=== PATIENT | male | born 1935 | race Caucasian/White ===

== ENCOUNTER 2017-04-23 17:30 | Inpatient (IN) | payer MEDICARE, BC ==
[2017-04-23] MEDS ORDERED: Acetaminophen 500 MG TAB PO PRN (18:35)
[2017-04-23] MEDS ORDERED: Dextrose 5% in Water 1,000 ML IV PRN (18:37)
[2017-04-23] MEDS ORDERED: HumaLOG 300 UNITS/3 ML VIAL SC PRN (18:37)
[2017-04-23] MEDS ORDERED: Dextrose 50% Abboject 50 ML SYRINGE SLOW IVP PRN (18:37)
[2017-04-23] MEDS ORDERED: Ampicillin 2 GM VIAL SLOW IVP SCH (21:00)
[2017-04-23] MEDS ORDERED: Sodium Chloride 0.9% 10 ML ONE (21:33)
[2017-04-23] MEDS: Carvedilol 6.25 MG TAB PO SCH (21:38)
[2017-04-23] MEDS: Famotidine 20 MG TAB PO SCH (21:38)
[2017-04-23] MEDS: Ampicillin 2 GM VIAL SLOW IVP SCH (21:38)
[2017-04-23] MEDS: guaiFENesin ER 600 MG TAB PO SCH (21:39)
[2017-04-23] MEDS: Sacubitril 49 MG/Valsartan 51 MG TABLET PO SCH (21:39)
[2017-04-24] MEDS ORDERED: Sodium Chloride 0.9% 10 ML ONE ×2 (01:37→15:12)
[2017-04-24] MEDS: Ampicillin 2 GM VIAL SLOW IVP SCH ×6 (01:44→20:20)
[2017-04-24] MEDS ORDERED: Sodium Chloride 0.9% 20 ML ONE (04:53)
[2017-04-24 05:13] LABS: Bilirubin Small (Negative); Blood, Urine Large (Negative); Clarity Hazy (Clear); Glucose, Urine (Dipstick) Negative (Negative); Leukocyte Negative (Negative); Nitrite Negative (Negative); Protein, Urine (Dipstick) 100 mg/dL (Neg-Trace); pH, Urine 5.5 (5.0-9.0)
[2017-04-24 05:14] LABS: Bacteria/HPF Rare-Few HPF (None Seen); RBC/HPF 21-50 HPF (0-3); Squamous Epithelial 0-3 HPF (0-3); WBC/HPF 0-3 HPF (0-3)
[2017-04-24 05:17] LABS: #Lymphocytes 0.3 thou/uL (1.20-3.40); #Monocytes 0.4 thou/uL (0.11-0.59); #Neutrophils 4.3 thou/uL (1.40-6.50); %Basophils 0.5 % (0.0-1.0); %Eosinophils 0.3 % (0.0-10.0); %Lymphocytes 6.1 % (21.0-51.0); %Neutrophils 85.2 % (42.0-75.0); Hemoglobin 10.9 g/dL (14.0-18.0); Mean Corpuscular HGB CONC 31.3 g/dL (32.0-36.0); Mean Corpuscular Hemoglobin 31.1 pg (27.0-31.0); Mean Corpuscular Volume 99.3 fl (80.0-94.0); Mean Platelet Volume 9.6 fL (7.4-10.4); PLT Morphology Comment Appears Decreased; Platelet Count 59 thou/uL (130-400); RBC Distribution Width 17.6 % (11.5-14.5); RBC Morphology Normal; Red Blood Cell (RBC) Count 3.52 mill/uL (4.70-6.10); White Blood Cell (WBC) Count 5.1 thou/uL (4.8-10.8)
[2017-04-24 05:23] LABS: MDiff Complete? YES; Manual Diff?? NO
[2017-04-24 05:34] LABS: ALT (SGPT) 19 U/L (8-55); AST (SGOT) 16 U/L (5-34); Albumin 2.4 g/dL (3.4-4.8); Alkaline Phosphatase 75 U/L (40-150); Anion Gap 17 mmol/L (10-20); BUN (Urea Nitrogen) 69 mg/dL (8.4-25.7); Bilirubin, Total 1.1 mg/dL (0.2-1.2); Calc. Creatinine Clearance 43 mL/min (70-130); Calcium 8.5 mg/dL (7.8-10.44); Carbon Dioxide 29 mmol/L (23-31); Chloride 106 mmol/L (98-107); Estimated GFR-MDRD 36; Globulin 3.1 g/dL (2.4-3.5); Glucose 105 mg/dL (83-110); Potassium 4.2 mmol/L (3.5-5.1); Protein, Total 5.5 g/dL (5.8-8.1); Sodium 148 mmol/L (136-145)
--- NOTE | 2017-04-24 08:22 | HP ---
HISTORY OF PRESENT ILLNESS: The patient is an 82-year-old white male with a long history of atrial f ibrillation and congestive heart failure with ejection fraction of 20-25%, who has had a Watchman dev ice attached and has had a biventricular defibrillator placement done in 12/2016 because of gradually worsening shortness of breath and because of recurrent falls and inability to maintain anti-coagulat ion. He had been doing fairly well after that until he presented on 04/08/2017 with fever, chills, c ough, was found to have health-care associated pneumonia and influenza B in respiratory failure. He required mechanical ventilation intubation as he is a full code. Subsequent culture did return Enter ococcus faecalis and he does have a chronic indwelling suprapubic catheter because of prostatic enlar gement secondary to cancer of the prostate. It was felt that this may have been the source of his En terococcal infection, but echocardiogram did show possible vegetations on the mitral valve and theref ore, he has been treated for Enterococcal endocarditis with ampicillin and Rocephin. He is having a suprapubic catheter replaced weekly because it is felt he may be having intermittent obstruction caus ing the recurrent sepsis. He had become severely weak, unable to maintain ADLs, was barely able to m ove in the bed. He has become weak enough that he is requiring thickened liquids and pureed diet bec ause of aspiration risk. He has chronic kidney disease stage 3, which is being monitored closely wit h a gradual diuresis with most recent creatinine ranging from 1.5 to 1.8. On admission he had a BNP of over 8000, but it has not been repeated. His white count has normalized and he does have a histor y of chronic myelogenous leukemia, but has stable anemia of 10-11 hemoglobin with worsening thrombocy topenia here in the hospital with platelets decreasing from 126 to 59 on transfer. He is on low dose Lovenox for prophylaxis of DVT. He had been continued on carvedilol 12.5 twice daily, Plavix 75 benjamin ly, an Entresto 49/51 one twice daily as well as spironolactone 25 mg daily. He no previous history of hypoxemia or COPD and is a nonsmoker. He was living alone with his prior to this admission a nd was ambulating with assistance. ALLERGIES: He has no known allergies. PAST SURGICAL HISTORY: Positive for decortication of a right empyema, defibrillator placement with a biventricular upgrade recently. FAMILY HISTORY: Only positive for diabetes. REVIEW OF SYSTEMS: Obtained from the old chart mainly. The patient states that he is just very weak , but denies any cough, sputum production, fever, chills, nausea, vomiting, diarrhea. He only compla ins of soreness in his legs. PHYSICAL EXAMINATION: GENERAL: The patient is a very weak and chronically ill white male who is oriented to person, place and time, appears to be in no respiratory distress. VITAL SIGNS: Blood pressure of 131/64, O2 sats 92% on 2 liters, respirations 20, pulse 69 and regula r. Pacemaker rhythm, temperature is 97.4. HEENT: Pupils are equal, round, and react to light and accommodation. Sclerae are anicteric, Conjun ctivae pale. Oral mucous membranes appear to be slightly dehydrated. NECK: Shows JVPs to not be elevated. Carotids 2+ and equal without bruits. LUNGS: Show decreased breath sounds in the bases, but no rales or rhonchi. There are some upper air way sounds. CARDIAC: Cardiac examination shows regular rhythm. There is a pacemaker in place, defibrillator in place, regular rhythm. ABDOMEN: Soft, nontender. SKIN/EXTREMITIES: Show pedal pulses 2+ and equal. There is only trace edema, no clubbing or cyanosi s. NEUROLOGIC: Cranial nerves are intact. The patient is diffusely weak. Deep tendon reflexes 2+ and equal, absent Babinskis. LABORATORY AND X-RAY FINDINGS: Show white count 5100, hematocrit 34, hemoglobin 10, platelet count 5 9,000, sodium 148, potassium 4.2, chloride 106, bicarbonate 29, BUN 69, creatinine 1.82, calcium 8.5, total protein 5.5, albumin 2.4. ASSESSMENT AND PLAN: An 82-year-old white male with a history of significant congestive heart failur e with ejection fraction of 20-25%, chronic atrial fibrillation, status AV jarek ablation and biventr icular pacemaker and defibrillator placement, who has also a history of cancer of prostate with gradu ally increasing obstruction and a suprapubic catheter which has apparently seated his blood and cause d an enterococcal sepsis and subsequent endocarditis with vegetations on the mitral valve. He is joanna ng treated with ampicillin and Rocephin for 8 weeks. He has become significantly weak and did requir e intubation, but now is only on nasal cannula with acceptable saturations at rest, but has been able to minimally do therapy and is admitted for PT and OT while continue slow gentle diuresis. His ibrahima l function is stage 3 and borderline, will be monitored closely, diuresis. He has developed a new pr oblem apparently since admission of thrombocytopenia, possibly due to his heparin therapy and Lovenox will be discontinued. He will be monitor closely. His prognosis is very poor and guarded, but the family was adamant about being a full code and we will monitor closely about the need for further int ensive care. He also will have his Alfredo catheter replaced weekly and will discuss this with Dr. Ortiz stevenson. Base met profile will be monitored daily. He will be continued on gentle diuresis, monitoring c losely for deterioration of his renal function.
[2017-04-24] MEDS: Furosemide 40 MG TAB PO SCH (09:05)
[2017-04-24] MEDS: Aspirin 81 mg Enteric Coated Tablet PO SCH (09:05)
[2017-04-24] MEDS: Famotidine 20 MG TAB PO SCH ×2 (09:05→20:21)
[2017-04-24] MEDS: Sacubitril 49 MG/Valsartan 51 MG TABLET PO SCH ×2 (09:05→20:22)
[2017-04-24] MEDS: guaiFENesin ER 600 MG TAB PO SCH ×2 (09:05→20:21)
[2017-04-24] MEDS: Saccharomyces boulardii 250 MG CAP PO SCH (09:05)
[2017-04-24] MEDS: Carvedilol 6.25 MG TAB PO SCH ×2 (09:06→20:21)
[2017-04-24] MEDS: Clopidogrel Bisulfate 75 MG TAB PO SCH (09:06)
[2017-04-24] MEDS: Spironolactone 25 MG TAB PO SCH (09:06)
[2017-04-24] MEDS: Enoxaparin Sodium 30 MG/0.3 ML SYRINGE SC SCH (09:07)
--- NOTE | 2017-04-24 09:40 | RAD ---
PORTABLE CHEST: Date: 04/24/17 HISTORY: Respiratory distress. COMPARISON: 04/17/17 chest x-ray. FINDINGS: Heart size is enlarged with a pacemaker in place. There is increasing opacification in the left lung base suggesting increasing effusion with atelectasis or infiltrate. Pulmonary vessels are engorged. IMPRESSION: 1. Cardiomegaly with pulmonary vascular engorgement suggesting an element of edema. 2. Increased opacification of the left lung base which could represent effusion with atelectasis abril chin infiltrate. POS: C
[2017-04-24] MEDS ORDERED: cefTRIAXone\\ROCEPHIN 2 GM VIAL IVPB SCH (14:00)
[2017-04-24] MEDS: cefTRIAXone\\ROCEPHIN 1 GM VIAL SLOW IVP SCH ×2 (14:11→14:12)
[2017-04-24] MEDS: Acetaminophen/Codeine 30-300mg Tablet PO PRN (20:22)
[2017-04-25] MEDS: Ampicillin 2 GM VIAL SLOW IVP SCH ×6 (01:37→20:33)
[2017-04-25] MEDS: Saccharomyces boulardii 250 MG CAP PO SCH (07:43)
[2017-04-25] MEDS: guaiFENesin ER 600 MG TAB PO SCH ×2 (07:43→20:34)
[2017-04-25] MEDS: Aspirin 81 mg Enteric Coated Tablet PO SCH (07:44)
[2017-04-25] MEDS: Sacubitril 49 MG/Valsartan 51 MG TABLET PO SCH ×2 (07:44→20:34)
[2017-04-25] MEDS: Famotidine 20 MG TAB PO SCH ×2 (07:44→20:33)
[2017-04-25] MEDS: Carvedilol 6.25 MG TAB PO SCH ×2 (07:44→20:33)
[2017-04-25] MEDS: Spironolactone 25 MG TAB PO SCH (07:44)
[2017-04-25] MEDS: Clopidogrel Bisulfate 75 MG TAB PO SCH (07:44)
[2017-04-25] MEDS: Enoxaparin Sodium 30 MG/0.3 ML SYRINGE SC SCH (07:45)
[2017-04-25] MEDS: Furosemide 40 MG TAB PO SCH (07:45)
--- NOTE | 2017-04-25 08:27 | PRG ---
DATE OF SERVICE: 04/24/2017 SUBJECTIVE: The patient is lying in the bed resting, somewhat agitated, but in no distress, having r ecurrent coughing after speech evaluation. OBJECTIVE: Speech evaluation states the patient is unsafe for any liquids or solids and feel that he is a severe aspiration risk and possibly quietly aspiration. Discussed situation with the who understands fully and is not inclined for PEG tube, but understand the severity and the risk and will think about it and talk with family and give decision tomorrow. I also discussed replacement of sup rapubic tube with the and will discuss this with Dr. Yoon in the morning and replace here in [facility]. The patient has been unable to do any therapy and is needing assistance for all transfer s and is somewhat confused and agitated. He requires 2 persons for transferring and scooting in the bed to the chair. His laboratory show that his BNP is 12,500. Sodium is 148, potassium 4.2, chloride 106, bicarbonate 29, BUN 69, creatinine 1.82, glucose 105, calcium 8.5, AST 16, ALT 19, albumin 2.4. White count 5100 , hematocrit 34, hemoglobin 10.9. LUNGS: Lungs appear fairly clear in the bases, but do appear to have upper airway sounds. CARDIAC: Cardiac examination displays regular rhythm, no murmurs. ABDOMEN: Soft and nontender. SKIN AND EXTREMITIES: Skin and extremities display 2+ edema. Chest x-ray does show cardiomegaly, mild pulmonary congestion. ASSESSMENT: An 82-year-old white male with history of significant ischemic cardiomyopathy with eject ion fraction 20-25%, elevation of BNP to 12,500, who has developed enterococcal bacteremia, most like ly endocarditis and significant deconditioning and weakening. He has become so weak that he is unabl e to maintain oral nutrition and speech feels that he is a severe risk for aspiration. I have discus sed this with the and will discuss a Dobbhoff feeding tube or PEG tube or waver risk and make de cision tomorrow. I have also discussed placement of suprapubic and will do this in the room tomorrow as apparently this was planned and scheduled by Dr. Yoon every week. We will also continue on Roce phin and ampicillin, does not appear to have any episodes of sepsis at this time with normal white co unt, pulse and vital signs and only altered mental status and azotemia. His azotemia appears to be m ost likely related cardiorenal effect. We will continue on 40 of Lasix daily monitoring closely, may need to increase if he has respiratory distress, but appears to be stable at this time and because o f increasing creatinine to 1.8 we will continue this dose. His prognosis is very poor. Will discus s this with the . He is a full code at this time. We will discuss with her also.
--- NOTE | 2017-04-25 09:07 | PRG ---
DATE OF SERVICE: 04/25/2017 SUBJECTIVE: The patient is in bed resting well with no dyspnea or cough at rest. He appears to be m ore alert and responsive today. Still somewhat agitated and not compliant and refuses placement of s uprapubic until returns. OBJECTIVE: VITAL SIGNS: Blood pressure of 134/68, respirations 22, O2 sats 96%, temperature is 95. LUNGS: Lungs are clear posteriorly and anteriorly. CARDIAC: Cardiac examination shows regular rhythm. ABDOMEN: Abdomen is soft and nontender. Suprapubic in place. SKIN AND EXTREMITIES: Skin and extremities showed 1+ edema and some faint pedal pulses. NEUROLOGICAL: Appears to be intact. No focal findings. ASSESSMENT: 1. Enterococcal endocarditis superimposed on severe ischemic cardiomyopathy, ejection fraction of 20 % and BNP of 12,000 on ampicillin and Rocephin, tolerating a gentle diuresis with furosemide 40 mg p. o. daily with decreasing subjective dyspnea and apparent stable physical findings and with only sligh tly increased creatinine to 1.82 from previous 1.74. 2. Urinary obstruction most likely due to cancer of the prostate requiring suprapubic catheter repl acement as feared that this was the source of his enterococcal bacteremia and endocarditis and we patricia l replace today. 3. Atrial fibrillation, status post ablation with biventricular pacer and AICD placement only on sub cutaneous heparin for DVT prophylaxis, unable to maintain full dose heparin or warfarin because of re current fall risk and has had Watchman device placed. PLAN: 1. Replace suprapubic today at bedside. 2. Continue furosemide 40 daily. 3. Continue PT and OT as tolerated.
[2017-04-25] MEDS: cefTRIAXone\\ROCEPHIN 1 GM VIAL SLOW IVP SCH ×2 (13:27→13:54)
[2017-04-25 15:07] VITALS: BMI 30.6
[2017-04-25] MEDS: Acetaminophen/Codeine 30-300mg Tablet PO PRN (20:34)
[2017-04-26] MEDS: Ampicillin 2 GM VIAL SLOW IVP SCH ×6 (01:24→20:56)
[2017-04-26 04:47] LABS: #Lymphocytes 0.4 thou/uL (1.20-3.40); #Monocytes 0.4 thou/uL (0.11-0.59); #Neutrophils 3.7 thou/uL (1.40-6.50); %Basophils 0.7 % (0.0-1.0); %Eosinophils 0.6 % (0.0-10.0); %Monocytes 8.1 % (0.0-10.0); %Neutrophils 81.6 % (42.0-75.0); Mean Corpuscular HGB CONC 29.7 g/dL (32.0-36.0); Mean Corpuscular Hemoglobin 30.6 pg (27.0-31.0); Mean Platelet Volume 10.7 fL (7.4-10.4); PLT Morphology Comment Appears Decreased; Platelet Count 63 thou/uL (130-400); RBC Morphology Normal; Red Blood Cell (RBC) Count 3.59 mill/uL (4.70-6.10); White Blood Cell (WBC) Count 4.5 thou/uL (4.8-10.8)
[2017-04-26 04:48] LABS: Manual Diff?? NO
[2017-04-26 04:49] LABS: MDiff Complete? YES
[2017-04-26 05:07] LABS: Anion Gap 16 mmol/L (10-20); BUN (Urea Nitrogen) 70 mg/dL (8.4-25.7); Calc. Creatinine Clearance 38 mL/min (70-130); Calcium 8.4 mg/dL (7.8-10.44); Carbon Dioxide 30 mmol/L (23-31); Chloride 108 mmol/L (98-107); Estimated GFR-MDRD 31; Glucose 97 mg/dL (83-110); Potassium 4.4 mmol/L (3.5-5.1); Sodium 150 mmol/L (136-145)
[2017-04-26] MEDS: Spironolactone 25 MG TAB PO SCH (07:31)
[2017-04-26] MEDS: Aspirin 81 mg Enteric Coated Tablet PO SCH (07:32)
[2017-04-26] MEDS: Carvedilol 6.25 MG TAB PO SCH (07:32)
[2017-04-26] MEDS: Clopidogrel Bisulfate 75 MG TAB PO SCH (07:33)
[2017-04-26] MEDS: Enoxaparin Sodium 30 MG/0.3 ML SYRINGE SC SCH (07:33)
[2017-04-26] MEDS: Famotidine 20 MG TAB PO SCH (07:33)
[2017-04-26] MEDS: Saccharomyces boulardii 250 MG CAP PO SCH (07:34)
[2017-04-26] MEDS: Furosemide 40 MG TAB PO SCH (07:34)
[2017-04-26] MEDS: guaiFENesin ER 600 MG TAB PO SCH (07:34)
[2017-04-26] MEDS: Sacubitril 49 MG/Valsartan 51 MG TABLET PO SCH (07:34)
[2017-04-26] MEDS: cefTRIAXone\\ROCEPHIN 1 GM VIAL SLOW IVP SCH ×2 (14:11)
[2017-04-26] MEDS ORDERED: Acetaminophen/Codeine 30-300mg Tablet PER TUBE PRN (19:10)
--- NOTE | 2017-04-26 20:39 | PRG ---
DATE OF SERVICE: 04/26/2017 SUBJECTIVE: Patient is sleeping, resting in bed. Has had PEG tube placed today, no complications an d is starting on tube feeding. OBJECTIVE: Shows temperature did increase to 100.6 this morning, but it is down to 96 for now, pulse is 99, respirations 20, O2 sats 97% on 2 liters, blood pressure 137/60. Lungs do show a few rhonchi anteriorly. PEG tube has healed well. LABORATORY DATA: Laboratory shows white count of 4500, 81% segs, platelet count is up to 63,000, hem atocrit 37, hemoglobin 11. Sodium is up to 150, BUN is up to 70, creatinine 2.07, potassium 4.4, chl oride 108. ASSESSMENT: 1. Recurrent aspiration with low grade fever, possibly due to this now n.p.o. with PEG tube feeding. 2. Severe ischemic cardiomyopathy with elevated BNP. 3. Cardiorenal failure, on Lasix and spironolactone. We will discontinue spironolactone, and Lasix and monitor renal function on tube feeding. 4. Recurrent urinary obstruction secondary to cancer of the prostate with suprapubic in place due to replaced next week by his urologist, his tract is not mature. 5. Stable atrial fibrillation, biventricular pacemaker and AICD placement with no evidence of discha rge, with watchman procedure and with no anticoagulation secondary to thrombocytopenia and recurrent falls. 6. Enterococcal endocarditis on Rocephin and ampicillin with no evidence of decompensation, we will continue. PLAN: CBC, base met in the a.m. Start tube feeding Jevity 1.5 at 250 mL every 4 hours with 50 mL steffany er flush. Repeat labs in the morning. Continue ampicillin and Rocephin.
[2017-04-26] MEDS: Famotidine 20 MG TAB PER TUBE SCH (20:57)
[2017-04-26] MEDS: Sacubitril 49 MG/Valsartan 51 MG TABLET PER TUBE SCH (20:57)
[2017-04-26] MEDS: Carvedilol 6.25 MG TAB PER TUBE SCH (21:05)
[2017-04-27] MEDS: Ampicillin 2 GM VIAL SLOW IVP SCH ×4 (01:19→13:09)
[2017-04-27] MEDS: Sterile Water 10 ML VIAL FS SCH ×2 (01:19→05:16)
[2017-04-27 06:33] LABS: #Lymphocytes 0.3 thou/uL (1.20-3.40); #Monocytes 0.5 thou/uL (0.11-0.59); #Neutrophils 4.6 thou/uL (1.40-6.50); %Basophils 0.6 % (0.0-1.0); %Eosinophils 0.7 % (0.0-10.0); %Monocytes 8.6 % (0.0-10.0); %Neutrophils 85.1 % (42.0-75.0); Hemoglobin 11.2 g/dL (14.0-18.0); Mean Corpuscular HGB CONC 29.3 g/dL (32.0-36.0); Mean Corpuscular Hemoglobin 29.9 pg (27.0-31.0); Mean Platelet Volume 10.4 fL (7.4-10.4); Platelet Count 57 thou/uL (130-400); Red Blood Cell (RBC) Count 3.75 mill/uL (4.70-6.10); White Blood Cell (WBC) Count 5.4 thou/uL (4.8-10.8)
[2017-04-27 06:37] LABS: Anion Gap 18 mmol/L (10-20); BUN (Urea Nitrogen) 70 mg/dL (8.4-25.7); Calc. Creatinine Clearance 38 mL/min (70-130); Calcium 8.3 mg/dL (7.8-10.44); Carbon Dioxide 28 mmol/L (23-31); Chloride 110 mmol/L (98-107); Estimated GFR-MDRD 31; Glucose 165 mg/dL (83-110); Potassium 4.7 mmol/L (3.5-5.1); Sodium 151 mmol/L (136-145)
--- NOTE | 2017-04-27 08:33 | PRG ---
DATE OF SERVICE: 04/27/2017 SUBJECTIVE: The patient is very weak, but awake and alert, appears to be in some mild respiratory di stress possibly due to weakness. Denies any chest pain. He is having minimal cough, but is asking f or water as he is n.p.o. at this time. OBJECTIVE: VITAL SIGNS: Blood pressure 148/64, temperature 97, pulse 72, respirations 20, O2 sats 94%. LUNGS: Appear to be clear anteriorly with some decreased breath sounds posteriorly. CARDIAC: Displays irregularly irregular rhythm. SKIN AND EXTREMITIES: Show persistent 1-2+ edema. LABORATORY: Sodium up to 151, potassium 4.7, chloride 110, bicarbonate 28, BUN 70, creatinine 2.07, glucose 165. White count 5400, hematocrit 38, hemoglobin 11. ASSESSMENT: 1. Enterococcal endocarditis, on ampicillin and Rocephin with no evidence of fever, recurrent sepsis . 2. Class IV congestive heart failure with atrial fibrillation, status post Watchman procedure and AV jarek ablation and dual pacemaker, only on aspirin and Plavix. 3. Class V congestive heart failure, cardiorenal syndrome with increasing creatinine, on furosemide, which has been discontinued. We will monitor closely and we will repeat chest x-ray. 24. Severe dysphagia secondary to weakness with recurrent aspiration, status post PEG tube, now on t ube feedings, be monitored closely for aspiration. PLAN: 1. Continue tube feeding of Jevity 1.5 one can every 4 hours, increased water flush to 75 mL with tu be feeding and repeat base met profile tomorrow. 2. Continue speech therapy and occupational therapy again tomorrow. 3. Repeat CBC tomorrow, has continued to have thrombocytopenia most likely due to splenomegaly from hepatic congestion. We will monitor closely as heparin has been stopped. 3. Discussed code status with family and patient as patient is still FULL CODE.
[2017-04-27] MEDS ORDERED: Aspirin 81 mg Enteric Coated Tablet PER TUBE SCH (09:00)
[2017-04-27] MEDS ORDERED: Clopidogrel Bisulfate 75 MG TAB PER TUBE SCH (09:00)
[2017-04-27] MEDS: Carvedilol 6.25 MG TAB PER TUBE SCH (09:20)
[2017-04-27] MEDS: Saccharomyces boulardii 250 MG CAP PO SCH (09:22)
[2017-04-27] MEDS: Famotidine 20 MG TAB PER TUBE SCH (09:22)
[2017-04-27] MEDS: Sacubitril 49 MG/Valsartan 51 MG TABLET PER TUBE SCH (09:22)
--- NOTE | 2017-04-27 11:04 | RAD ---
SINGLE VIEW OF THE CHEST: COMPARISON: 04/25/17. HISTORY: Congestive heart failure. FINDINGS: A single view of the chest shows an enlarged but stable cardiomediastinal silhouette. The pacemaker is unchanged in position. There is near-complete opacification of the left thorax which may represen t an infiltrate and/or pleural effusion. No right-sided infiltrate is seen. There is a right upper extremity PICC line. IMPRESSION: Complete opacification of the left thorax may represent a pleural effusion and/or infiltrate. POS: DEV
[2017-04-27 11:47] VITALS: BP 111/55
[2017-04-27 11:50] VITALS: TEMP 97.7
--- NOTE | 2017-04-28 09:51 | DIS ---
DATE OF ADMISSION: 04/23/2017 DATE OF TRANSFER TO [facility]: 04/27/2017 FINAL DIAGNOSES: 1. End-stage congestive heart failure with ejection fraction 20-25% exacerbation with Enterococcal e ndocarditis and worsening left pleural effusion with complete opacification of left hemithorax. 2. Cancer of the prostate with prostatic enlargement requiring suprapubic catheter and new finding o f enterococcal urinary tract infection and sepsis secondary to this. 3. Thrombocytopenia secondary to Lovenox. No evidence of bleeding. 4. Stage IV congestive heart failure as mentioned above, status post AICD and biventricular pacemake r with defibrillator. 5. History of right empyema. 6. History of chronic myelogenous leukemia. HOSPITAL COURSE: The patient is an unfortunate 82-year-old white male with a history of atrial fibri llation, congestive heart failure, class 4 with ejection fraction 20-25%, biventricular pacemaker wit h a defibrillator placement 12/2016 as well as a Watchman procedure who developed enterococcal sepsis from urinary tract obstruction and suprapubic catheter from recurrent cancer of the prostate. He gómez bsequently developed endocarditis, worsening cardiac function, required intubation, but appeared to h ave stabilized, was awake and alert, and was transferred here on 04/23/2017 for antibiotics continuat ion and PT and OT. However, he never gained enough strength to do PT, OT. He did require a PEG tube placement as he was too weak to even eat and swallow. The family did agree to this. Suprapubic cat heter was in the process of being placed, but he began to get more and more short of breath, weaker. Repeat chest x-ray showed a complete opacification of the left hemithorax and it was felt that he re quired a thoracentesis as this was possibly a recurring empyema versus worsening of his heart failure . His prognosis is very poor, but he is still a full code and for this reason, he was transferred back to [facility] for more aggressive treatment, pulmonary consult and thoracentes is.
== END 2017-04-27 13:45 | disposition short-term general hospital (02) | DRG 698 ==
LOC: NAV ACUTE 17:30
PROVIDERS: ADMIT Internal Medicine; ATTEND Internal Medicine
DX: T83.518A Infection and inflammatory reaction due to other urinary catheter, initial encounter (principal); I33.0 Acute and subacute infective endocarditis; C92.10 Chronic myeloid leukemia, BCR/ABL-positive, not having achieved remission; D69.6 Thrombocytopenia, unspecified; I48.2 Chronic atrial fibrillation; N18.3 Chronic kidney disease, stage 3 (moderate); B95.2 Enterococcus as the cause of diseases classified elsewhere; I50.9 Heart failure, unspecified; R13.10 Dysphagia, unspecified; E86.0 Dehydration; T17.920A Food in respiratory tract, part unspecified causing asphyxiation, initial encounter; R53.1 Weakness; D64.9 Anemia, unspecified; C61 Malignant neoplasm of prostate; N13.9 Obstructive and reflux uropathy, unspecified; Z79.01 Long term (current) use of anticoagulants; Z91.81 History of falling; Z95.810 Presence of automatic (implantable) cardiac defibrillator; Z96.0 Presence of urogenital implants; Z79.82 Long term (current) use of aspirin; I25.5 Ischemic cardiomyopathy
CPT/HCPCS: 71045; 80048; 80053; 81001; 83880; 85025; A4216; G8996-GN-CM; G8997-GN-CL; J0290; J0696; J1650